=== PATIENT | male | born 1935 | race Caucasian/White ===

== ENCOUNTER 2017-11-22 00:03 | Inpatient (IN) | payer MEDICARE ==
[2017-11-22] MEDS ORDERED: Adenosine 6 MG/2 ML VIAL ONE (00:10)
[2017-11-22] MEDS ORDERED: Midazolam HCl 2 mg/2 ml Vial ONE (00:13)
[2017-11-22] MEDS ORDERED: Amiodarone HCl 150 MG, Admixture Fee 1 EACH in Dextrose 5% in Water 100 ML IVPB SCH ×2 (00:30→18:00)
[2017-11-22] MEDS ORDERED: Amiodarone HCl 450 MG, Admixture Fee 1 EACH in Dextrose 5% in Water 250 ML IVPB SCH ×2 (00:30→06:45)
[2017-11-22 00:52] LABS: #Basophils 0.1 thou/uL (0.0-0.2); #Eosinphils 0.2 thou/uL (0.0-0.7); #Lymphocytes 3.9 thou/uL (1.20-3.40); #Monocytes 0.9 thou/uL (0.11-0.59); #Neutrophils 3.5 thou/uL (1.40-6.50); %Basophils 1.4 % (0.0-1.0); %Eosinophils 2.4 % (0.0-10.0); %Lymphocytes 45.7 % (21.0-51.0); %Monocytes 10.3 % (0.0-10.0); %Neutrophils 40.3 % (42.0-75.0); Hemoglobin 16.4 g/dL (14.0-18.0); Mean Corpuscular HGB CONC 32.5 g/dL (32.0-36.0); Mean Corpuscular Hemoglobin 31.1 pg (27.0-31.0); Mean Corpuscular Volume 95.6 fL (78.0-98.0); Mean Platelet Volume 6.7 fL (7.4-10.4); Platelet Count 205 thou/uL (130-400); RBC Distribution Width 12.8 % (11.5-14.5); Red Blood Cell (RBC) Count 5.26 mill/uL (4.70-6.10); White Blood Cell (WBC) Count 8.6 thou/uL (4.8-10.8)
[2017-11-22 01:10] LABS: ALT (SGPT) 19 U/L (8-55); AST (SGOT) 21 U/L (5-34); Albumin 4.9 g/dL (3.4-4.8); Alkaline Phosphatase 47 U/L (40-150); Anion Gap 16 mmol/L (10-20); BUN (Urea Nitrogen) 11 mg/dL (8.4-25.7); Bilirubin, Total 0.6 mg/dL (0.2-1.2); CK (CPK) 90 U/L (30-200); Calc. Creatinine Clearance 0 mL/min (70-130); Calcium 9.6 mg/dL (7.8-10.44); Carbon Dioxide 23 mmol/L (23-31); Chloride 101 mmol/L (98-107); Estimated GFR-MDRD 72; Globulin 2.9 g/dL (2.4-3.5); Glucose 132 mg/dL (83-110); Magnesium 2.7 mg/dL (1.6-2.6); Potassium 3.9 mmol/L (3.5-5.1); Protein, Total 7.8 g/dL (5.8-8.1); Sodium 136 mmol/L (136-145)
[2017-11-22 01:12] LABS: CKMB 2.1 ng/mL (0-6.6); Troponin I Less than 0.010 ng/mL (< 0.028)
--- NOTE | 2017-11-22 04:08 | HP ---
The patient is currently between doctors, but he plans to see Dr. Haynes. He had been seeing Dr. Glen odonnell. APARTMENT MAINTENANCE TECHNICIAN: Fly Mendez M.D. CHIEF COMPLAINT: "I felt strange and having palpitations." HISTORY OF PRESENT ILLNESS: Mr. Buck is a pleasant 82-year-old gentleman that has a history of hyp ertension, atrial fibrillation. He has had 2 ablations in the past for supraventricular tachycardia or atrial tachycardia. He says that he was feeling kind of strange on yesterday. He has an raisa on h is watch that can take his heart rate and said it was normal, but he did feel hard. Then, today arou nd noon, he still felt strange again and later on that night he felt okay. However, when he went to bed, he felt like his heart was pounding. He took his blood pressure and noticed that his blood pres sure was "going crazy" and his heart rate was ranging anywhere from 50s to the 160s. He lives in [place] and says he drove himself to the hospital and in the hospital, he was found to have what wa s initially thought of his narrow complex tachycardia. He was given adenosine to try to slow it down . It slowed down for a little bit, but then became fast again. He was given amiodarone without much improvement in his symptoms. At that time, the ER physician felt that his heart rate or the heart r hythm appeared to be ventricular tachycardia and for this reason, he went ahead and cardioverted him and now he is in sinus rhythm and is currently on the amiodarone drip. The patient says that during this time, he denied having any chest pain or shortness of breath, but he did feel little bit dizzy a nd lightheaded, no nausea, no vomiting, no diaphoresis. REVIEW OF SYSTEMS: All systems were reviewed and are negative except for that mentioned in the histo ry of present illness. PAST MEDICAL HISTORY: Significant for atrial arrhythmia. He has had 2 ablations in the past, hypert ension, atrial fibrillation, gastroesophageal reflux disease, and BPH. PAST SURGICAL HISTORY: He has had ablations x2, tonsillectomy, and ventral hernia repair. ALLERGIES: No known drug allergies. SOCIAL HISTORY: He is , has two children, a son and a daughter. He occasionally drinks socia lly. He denies any tobacco use. His son, Saleem Buck would be his surrogate decision maker and he w ould like to be a [employer]. FAMILY HISTORY: Significant for heart disease in his father. Mother lived in the 100s, to be 100 ye ars old. MEDICATIONS: Include metoprolol 50 mg 2 tablets a day, aspirin 81 mg daily, simvastatin 20 mg at bed time, pantoprazole 20 mg q.p.m., finasteride 3 mg daily, and Flomax 0.4 at bedtime. PHYSICAL EXAMINATION: GENERAL: He is alert and oriented. He appears to be in no acute distress. VITAL SIGNS: His blood pressure is around 102/70, heart rate is in the 70s, respiratory rate of 11. He is afebrile. HEENT: Pupils are equal, round, and reactive. Extraocular muscles are intact. His sclerae are anic teric. Throat no erythema, no exudates. NECK: No adenopathy, no bruits. LUNGS: Clear to auscultation. There is no wheezing, no rales. CARDIOVASCULAR: He has a normal S1, S2. I did not appreciate an S3 or S4. No murmurs, clicks or ru bs. ABDOMEN: Soft, it is nontender, nondistended. Positive for bowel sounds. No rebound, no guarding. EXTREMITIES: There is no clubbing, cyanosis, no edema. NEUROLOGIC: The exam is nonfocal. LABORATORY RESULTS: Sodium 136, potassium 3.9, chloride is 101, CO2 is 23, BUN of 11, creatinine 1.0 , glucose is 132. White blood cell count 8.6, hemoglobin 16.4, hematocrit is 50.3, platelet count is 205. Chest x-ray, heart size appears to be slightly enlarged, costophrenic angles are sharp. There is no evidence of any increased pulmonary vascular markings. ASSESSMENT AND PLAN: This is a pleasant 82-year-old gentleman who presents to the emergency room wit h an arrhythmia thought to be possibly both a narrow complex and then a wide complex tachycardia. He will be admitted to the [facility]. We will continue the amiodarone drip. Keep a close eye on his electr olytes and replace or correct as needed. Consult Cardiology in the a.m. I suspect he may also need electrophysiology consult as well. We will continue his metoprolol and await further recommendations from Cardiology.
[2017-11-22] MEDS ORDERED: Ondansetron ODT 4 MG TAB SL PRN (06:02)
[2017-11-22] MEDS ORDERED: Ondansetron HCl/PF 4 MG/2 ML Vial IVP PRN (06:02)
[2017-11-22] MEDS ORDERED: Acetaminophen 325 MG TAB PO PRN ×2 (06:02→06:27)
[2017-11-22 06:15] LABS: Troponin I Less than 0.010 ng/mL (< 0.028)
[2017-11-22 06:26] VITALS: BMI 24.4
[2017-11-22] MEDS ORDERED: Mag-Al 1200 mg/1200 mg/30 ML UDCUP PO PRN (06:27)
[2017-11-22] MEDS ORDERED: Amiodarone In Dextrose 200 ML IVPB SCH (06:27)
[2017-11-22] MEDS ORDERED: Prevnar 13-Val Conj/PF 0.5 ML SYRINGE IM ONE (06:45)
--- NOTE | 2017-11-22 08:22 | RAD ---
CHEST ONE VIEW: HISTORY: Palpitations. Irregular heartbeat. COMPARISON: None. FINDINGS: The cardiac silhouette is magnified and upper limits of normal in size. The pulmonary vasculature is also at the upper limits of normal. The mediastinum is midline. No lobar consolidation or evidence of pneumothorax. A defibrillator patch overlies the right upper chest. laboratory monitor leads overl y the chest. IMPRESSION: Borderline cardiomegaly and pulmonary vascular congestion. No florid edema is evident. POS: PIPPA
--- NOTE | 2017-11-22 08:23 | PDOC.PULCN ---
Pulmonology Consult: HPI - Date of Consult Date: 11/22/17 Time: 08:21 - Consult Details Reason for Consult: [facility] for [facility] Requesting Physician: Patrick Lizarraga MD - History of Present Illness HPI: MENDY MCINTOSH is a 82 year-old M Pulmonology Consult: Meds - Medications Medications: Current Medications Acetaminophen (Tylenol) 650 mg PO Q4H PRN PRN Reason: Headache/Fever or Pain Stop: 11/22/17 13:04 Acetaminophen (Tylenol) 650 mg PO Q4H PRN PRN Reason: Headache/Fever or Pain Al Hydroxide/Mg Hydroxide (Maalox) 30 ml PO Q6H PRN PRN Reason: Heartburn or Indigestion Aspirin (Aspirin Chewable) 81 mg PO Q3DAYS [facility] Enoxaparin Sodium (Lovenox) 40 mg SC 0900 [facility] Amiodarone HCl 450 mg/Miscellaneous Medication 1 each/ Dextrose/Water 259 mls @ 0 mls/hr IVPB INF [facility]; Protocol Metoprolol Succinate (Toprol Xl) 50 mg PO DAILY [facility] Ondansetron HCl (Zofran) 4 mg IVP Q6H PRN PRN Reason: Nausea/Vomiting Stop: 11/22/17 13:04 Ondansetron HCl (Zofran Odt) 4 mg SL Q6H PRN PRN Reason: Nausea/Vomiting Stop: 11/22/17 13:04 Simvastatin (Zocor) 20 mg PO HS [facility] Sodium Chloride (Flush - Normal Saline) 10 ml IVF Q12HR [facility] Sodium Chloride (Flush - Normal Saline) 10 ml IVF PRN PRN PRN Reason: Saline Flush Tamsulosin HCl (Flomax) 0.4 mg PO DAILY [facility] - Allergies Allergies/Adverse Reactions: Allergies Allergy/AdvReac Type Severity Reaction Status Date / Time No Known Drug Allergies Allergy Verified 02/25/16 07:57 Pulmonology Consult: Results - Labs Result Diagrams: 11/22/17 00:44 11/22/17 00:07 Pulmonology Consult: A/P - Time Time: 50% of the time was spent in coordination of care (as documented) at patient's floor/unit and/or counseling patient.
[2017-11-22] MEDS ORDERED: Enoxaparin Sodium 40 MG/0.4 ML SYRINGE SC SCH (09:00)
[2017-11-22 09:03] LABS: Troponin I Less than 0.010 ng/mL (< 0.028)
[2017-11-22] MEDS: Tamsulosin HCl 0.4 MG CAP PO SCH (09:21)
[2017-11-22] MEDS ORDERED: Apixaban 5 MG TAB PO SCH ×2 (11:00→21:00)
--- NOTE | 2017-11-22 17:25 | PDOC.EVN ---
Event Note - Event Note Event Note: Chart reviewed, patient seen. No complaints, will follow.
--- NOTE | 2017-11-22 17:41 | CON ---
DATE OF CONSULTATION: 11/22/2017 REASON FOR CONSULTATION: Wide complex tachycardia. HISTORY OF PRESENT ILLNESS: Mr. Buck is a very pleasant 82-year-old gentleman whom I have seen and evaluated in the past. He has a history of atrial fibrillation, status post ablation. He recently presented with palpitations and fluttering. He presented to the emergency room where he was found to be in wide complex tachycardia. He could not be rate controlled on IV Cardizem, adenosine or amioda isaiah. He was subsequently shocked while in the emergency room. He is now in sinus rhythm. After further review, it appears Mr. Buck was back in atrial fibrillation. His wide complex tachyc ardia is secondary to baseline right bundle branch block. No changes in the morphology were present. He is currently asymptomatic. PAST MEDICAL HISTORY: As above including hypertension, acid reflux, BPH. PAST SURGICAL HISTORY: Atrial fibrillation status post ablation, tonsillectomy. ALLERGIES: None. SOCIAL HISTORY: No current tobacco or alcohol use. REVIEW OF SYSTEMS: A 10-point review of systems is reviewed and as above, otherwise negative. HOME MEDICATIONS: Include metoprolol, aspirin, Zocor, pantoprazole, finasteride and Flomax. PHYSICAL EXAMINATION: GENERAL: Patient is a pleasant male who is in no acute distress. The patient appears his stated age . VITAL SIGNS: Blood pressure 132/67, pulse 65, temperature 97.5. NEUROLOGIC: The patient is alert and oriented times 3 with no focal neurologic deficits. HEENT: Sclerae without icterus. Mouth has moist mucous membranes with normal pallor. NECK: No JVD. Carotid upstroke brisk. No bruits bilaterally. LUNGS: Clear to auscultation with unlabored respirations. BACK: No scoliosis or kyphosis. CARDIAC: Regular rate and rhythm with normal S1 and S2. No S3 or S4 noted. No significant rubs, mu rmurs, thrills, or gallops noted throughout the precordium. PMI is not displaced. There is no dennys ternal heave. ABDOMEN: Soft, nontender, nondistended. No peritoneal signs present. No hepatosplenomegaly. No ab normal striae. EXTREMITIES: 2+ femoral and 2+ dorsalis pedis pulses. No cyanosis, clubbing, or edema. SKIN: No gross abnormalities. PERTINENT LABS: Hemoglobin 16.4, creatinine 1.0. Troponin negative. IMPRESSION: Recurrent paroxysmal atrial fibrillation. RECOMMENDATIONS: 1. Add Multaq 400 mg 1 p.o. b.i.d. 2. Add Eliquis 5 mg 1 p.o. b.i.d. 3. May need repeat ablation if he continues to have breakthrough atrial fibrillation. Would monitor overnight. If stable, would be okay from my standpoint to discharge home with close outpatient foll owup.
[2017-11-22] MEDS: Amiodarone HCl 450 MG, Admixture Fee 1 EACH in Dextrose 5% in Water 250 ML IVPB SCH (18:18)
[2017-11-22] MEDS: Dronedarone HCl 400 MG TAB PO SCH (18:20)
[2017-11-22] MEDS ORDERED: Digoxin 0.5 MG/2 ML AMP SLOW IVP SCH (20:15)
[2017-11-22] MEDS ORDERED: Sodium Chloride 0.9% 500 ML IVPB SCH (20:30)
[2017-11-22] MEDS: Simvastatin 20 MG TAB PO SCH (21:23)
[2017-11-22] MEDS: Digoxin 0.5 MG/2 ML AMP SLOW IVP SCH (21:24)
[2017-11-23] MEDS: Digoxin 0.5 MG/2 ML AMP SLOW IVP SCH (00:52)
[2017-11-23 05:44] LABS: Anion Gap 11 mmol/L (10-20); BUN (Urea Nitrogen) 9 mg/dL (8.4-25.7); Calc. Creatinine Clearance 73 mL/min (70-130); Calcium 8.9 mg/dL (7.8-10.44); Carbon Dioxide 24 mmol/L (23-31); Chloride 106 mmol/L (98-107); Estimated GFR-MDRD 81; Glucose 103 mg/dL (83-110); Potassium 3.9 mmol/L (3.5-5.1); Sodium 137 mmol/L (136-145)
[2017-11-23] MEDS: Amiodarone HCl 450 MG, Admixture Fee 1 EACH in Dextrose 5% in Water 250 ML IVPB SCH (06:20)
--- NOTE | 2017-11-23 08:24 | PRG ---
DATE OF SERVICE: 11/23/2017 HISTORY OF PRESENT ILLNESS: Mr. Buck last evening appeared to go into SVT type rhythm. He is now in sinus rhythm. He was placed on IV amiodarone. He states he has shortness of breath and felt ligh theaded. He is now stable. PHYSICAL EXAMINATION: VITAL SIGNS: Blood pressure 140/57, pulse 60, temperature 97.9. LUNGS: Clear to auscultation. CARDIAC: Regular rate and rhythm. ABDOMEN: Soft, nontender, nondistended. EXTREMITIES: No edema. IMPRESSION: 1. Supraventricular tachycardia. 2. History of paroxysmal atrial fibrillation. RECOMMENDATIONS: 1. Continue Multaq. 2. Hold Eliquis in anticipation of potential procedure tomorrow. 3. We will add Lovenox at 1 mg/kilo subcu and consult with EP. 4. Continue IV amiodarone.
[2017-11-23] MEDS: Dronedarone HCl 400 MG TAB PO SCH ×2 (09:27→17:12)
[2017-11-23] MEDS: Tamsulosin HCl 0.4 MG CAP PO SCH (09:27)
[2017-11-23] MEDS: Enoxaparin Sodium 80 MG/0.8 ML SYRINGE SC SCH ×2 (09:28→21:29)
--- NOTE | 2017-11-23 14:52 | PDOC.PN ---
- Subjective Encounter Start Date: 11/23/17 Encounter Start Time: 14:50 Pt seen for followup re: SVT. Denies chest pain, shortness of breath, fevers or chills. - Objective Resuscitation Status: Resuscitation Status FULL:Full Resuscitation MAR Reviewed: Yes Vital Signs & Weight: Vital Signs (12 hours) Temp Pulse Resp BP BP Pulse Ox 11/23/17 11:40 97.6 F 61 18 158/75 H 11/23/17 11:00 95 11/23/17 10:40 97.8 F 66 18 140/76 95 11/23/17 08:00 97.9 F 62 14 11/23/17 07:49 97.9 F 62 14 141/57 H 99 11/23/17 04:00 97.8 F 61 16 116/64 98 Weight Weight 175 lb I&O: 11/22/17 11/23/17 11/24/17 06:59 06:59 06:59 Intake Total 300 1520 47.4 Output Total 360 2050 Balance -60 -530 47.4 Result Diagrams: 11/22/17 00:44 11/23/17 04:37 EKG Reviewed by me: Yes (Tele: NSR, SVT) Phys Exam - Physical Examination Constitutional: NAD HEENT: moist MMs, sclera anicteric, oral pharynx no lesions, 2+ tonsils Neck: no nodes, no JVD, supple, full ROM Respiratory: no wheezing, no rales, no rhonchi, clear to auscultation bilateral Cardiovascular: RRR, no rub S1, s2 Gastrointestinal: soft, non-tender, no distention, positive bowel sounds Neurological: moves all 4 limbs Psychiatric: normal affect, A&O x 3 Dx/Plan (1) SVT (supraventricular tachycardia) Code(s): I47.1 - SUPRAVENTRICULAR TACHYCARDIA Status: Acute Comment: SVT and VT. Continue amiodarone drip. Monitor on telemetry. (2) Dyslipidemia Code(s): E78.5 - HYPERLIPIDEMIA, UNSPECIFIED Status: Chronic Comment: continue statin (3) HTN (hypertension) Code(s): I10 - ESSENTIAL (PRIMARY) HYPERTENSION Status: Chronic Comment: Monitor vital signs, titrate antihypertensives as needed (4) GERD (gastroesophageal reflux disease) Code(s): K21.9 - GASTRO-ESOPHAGEAL REFLUX DISEASE WITHOUT ESOPHAGITIS Status: Chronic Comment: stable (5) BPH (benign prostatic hyperplasia) Code(s): N40.0 - BENIGN PROSTATIC HYPERPLASIA WITHOUT LOWER URINRY TRACT SYMP Status: Chronic Comment: stable, on Flomax and finasteride - Plan * . Review of Systems - Review of Systems Constitutional: negative: fever, chills, sweats, weakness, malaise Respiratory: negative: Cough, Shortness of Breath, SOB with Excertion, Pleuritic Pain, Wheezing Cardiovascular: negative: chest pain, palpitations, orthopnea, paroxysmal nocturnal dyspnea, edema, light headedness Gastrointestinal: negative: Nausea, Vomiting, Abdominal Pain, Diarrhea, Constipation, Melena, Hematochezia Genitourinary: negative: Dysuria, Frequency, Incontinence, Hematuria, Retention Skin: negative: Rash, Lesions, Allan, Bruising - Medications/Allergies Allergies/Adverse Reactions: Allergies Allergy/AdvReac Type Severity Reaction Status Date / Time No Known Drug Allergies Allergy Verified 02/25/16 07:57 Medications: Current Medications Acetaminophen (Tylenol) 650 mg PO Q4H PRN PRN Reason: Headache/Fever or Pain Al Hydroxide/Mg Hydroxide (Maalox) 30 ml PO Q6H PRN PRN Reason: Heartburn or Indigestion Last Admin: 11/22/17 19:03 Dose: 30 ml Aspirin (Aspirin Chewable) 81 mg PO Q3DAYS [facility] Last Admin: 11/22/17 09:21 Dose: 81 mg Dronedarone (Multaq) 400 mg PO BID-[facility] Last Admin: 11/23/17 09:27 Dose: 400 mg Enoxaparin Sodium (Lovenox) 80 mg SC 0900,2100 [facility] Last Admin: 11/23/17 09:28 Dose: 80 mg Amiodarone HCl 450 mg/Miscellaneous Medication 1 each/ Dextrose/Water 259 mls @ 0 mls/hr IVPB INF [facility]; Protocol Last Admin: 11/23/17 06:20 Dose: 259 mls Metoprolol Succinate (Toprol Xl) 50 mg PO DAILY [facility] Last Admin: 11/23/17 09:28 Dose: 50 mg Simvastatin (Zocor) 20 mg PO HS [facility] Last Admin: 11/22/17 21:23 Dose: 20 mg Sodium Chloride (Flush - Normal Saline) 10 ml IVF Q12HR [facility] Last Admin: 11/23/17 09:35 Dose: Not Given Sodium Chloride (Flush - Normal Saline) 10 ml IVF PRN PRN PRN Reason: Saline Flush Tamsulosin HCl (Flomax) 0.4 mg PO DAILY [facility] Last Admin: 11/23/17 09:27 Dose: 0.4 mg
[2017-11-23] MEDS: Simvastatin 20 MG TAB PO SCH (21:29)
[2017-11-24] MEDS: Dronedarone HCl 400 MG TAB PO SCH (09:54)
[2017-11-24] MEDS: Tamsulosin HCl 0.4 MG CAP PO SCH (09:54)
[2017-11-24] MEDS: Enoxaparin Sodium 80 MG/0.8 ML SYRINGE SC SCH (09:54)
--- NOTE | 2017-11-24 11:48 | EKG ---
Test Reason : STAT Blood Pressure : / mmHG Vent. Rate : 182 BPM Atrial Rate : 182 BPM P-R Int : 000 ms QRS Dur : 134 ms QT Int : 254 ms P-R-T Axes : 000 084 -50 degrees QTc Int : 441 ms Poor data quality, interpretation may be adversely affected Wide QRS tachycardia with occasional Premature ventricular complexes vs. aberrancy , Favor Acute SVT (Supraventricular Tachycardia) Right bundle branch block Abnormal ECG When compared with ECG of 22-NOV-2017 00:34, (Unconfirmed) Wide QRS tachycardia has replaced Sinus rhythm Vent. rate has increased BY 98 BPM Confirmed by ZULLY HERNANDEZ ([id number]) on 11/24/2017 11:48:24 AM Referred By: RASHMI Confirmed By:ZULLY HERNANDEZ
--- NOTE | 2017-11-24 14:05 | DIS ---
DATE OF ADMISSION: 11/22/2017 DATE OF DISCHARGE: 11/24/2017 PRIMARY CARE PHYSICIAN: Taye Benitez in [place]. DISCHARGE DIAGNOSES: 1. Supraventricular tachycardia. 2. History of atrial fibrillation. CONDITION OF PATIENT ON THE DAY OF DISCHARGE: Stable. I assessed Mr. Buck on the day of discharge . He denies any chest pain or shortness of breath. Vital signs are stable. S1 and S2 are heard, re gular. Lungs are clear to auscultation bilaterally. DISCHARGE MEDICATIONS: Aspirin 81 mg daily, finasteride 5 mg daily, Toprol-XL 100 mg daily, Zocor 20 mg at bedtime, Flomax 0.4 mg daily, apixaban 5 mg 2 times a day, Multaq 400 mg 2 times a day. CONSULTATIONS DURING THIS HOSPITALIZATION: Cardiology, Dr. Mendez and Electrophysiology, Dr. Nesha pulido. HOSPITAL COURSE: Mr. Buck is a pleasant 82-year-old gentleman who was admitted to [facility] on 11/22/2017 for narrow complex tachycardia and wide complex tachycardia. Please refer to Dr. Lizarraga's history and physical note dated 11/22/2017 for further details. He was seen by Cardiology Service. The impression was that he had recurrent paroxysmal atrial fibril lation. He has been started on Multaq. Eliquis was also started but then put on hold in case he nee ds repeat ablation. He was seen by Electrophysiology Service on the day of discharge. It was advised that the patient co ntinue on Multaq, Eliquis and metoprolol and follow up with Electrophysiology Service as outpatient. Many thanks for allowing me to participate in your patient's care. Please feel free to contact me wi th any questions or concerns. Please note that patient is establishing care with Dr. Haynes. He was previously Dr. Mars's barbara ent. DISCHARGE DESTINATION: Home. TOTAL AMOUNT OF TIME SPENT COORDINATING THIS DISCHARGE: 33 minutes.
[2017-11-24 15:02] VITALS: BP 131/78; TEMP 97.6
--- NOTE | 2017-11-24 19:05 | CON ---
DATE OF CONSULTATION: 11/24/2017 ELECTROPHYSIOLOGY CONSULTATION REQUESTING PHYSICIAN: Dr. Fly Mendez. REASON FOR CONSULTATION: Atrial fibrillation. HISTORY OF PRESENT ILLNESS: Mr. Buck is a very pleasant 82-year-old gentleman with a history of at rial fibrillation with 2 prior ablations, most recently in 02/[address] Martinez. At this time, he underwent successful ablation and re-isolation of all four pulmonary veins from his prior ablation. At that time, he received a total of 15.6 minutes delivered. Since that time, he is largely w ell maintained off of antiarrhythmic therapy, but has had a couple episodes with heart racing and an associated odd sensation leaving him somewhat lightheaded and foggy and reportedly was terminated wit h adenosine. SVT, but likely for recurrent atrial fibrillation or atrial flutter. With this hospitalization, we find that Mr. Buck has had a similar episode. He is felt kind of odd and funny and felt that his heart rate was pounding. When he presented to the emergency room, he wa s initially in a narrow complex tachycardia. He was given some amiodarone; however, he then develope d a wide complex tachycardia. There was a brief concern for ventricular tachycardia and he promptly underwent a cardioversion. He is in maintaining sinus rhythm on amiodarone drip. Currently, Mr. Shauna harp is feeling well. He denies any heart racing, palpitations, chest pain, pressure, syncope, near s yncope, stroke symptoms. REVIEW OF SYSTEMS: Twelve point review of systems is conducted and is negative except that listed ab ove in HPI. PAST SURGICAL HISTORY: 1. Atrial fibrillation, status post 2 prior ablations. 2. Recurrent episodes of SVT, likely recurrent atrial arrhythmia requiring hospitalizations in the p ast in responsive to adenosine now with a direct cardioversion. 3. Hypertension. 4. Gastroesophageal reflux disease. 5. Benign prostatic hypertrophy. HOME MEDICATIONS: Metoprolol 100 mg p.o. daily, Proscar 5 mg daily, aspirin 81 mg daily, tamsulosin 0.4 mg daily, simvastatin 20 mg at bedtime. SOCIAL HISTORY: with 2 children. Occasional alcoholic beverage. Negative for tobacco. Neg ative for drug use. PHYSICAL EXAMINATION: VITAL SIGNS: Most recent vital signs; 98.2, blood pressure 136/89, respirations are 16, oxygen is 96 % on room air and heart rate is 77. GENERAL: The patient is alert and oriented. HEAD: Normocephalic, atraumatic. RESPIRATORY: Speech is clear. Affect is appropriate. NECK: Supple, without jugular venous distention. LUNGS: Respirations are clear to auscultation bilaterally. Respirations are even and unlabored. CARDIOVASCULAR: Heart rate is regularly regular with a crisp S1, S2. PMI is nondisplaced. ABDOMEN: Soft and nontender without palpable masses. EXTREMITIES: Warm and dry to touch without clubbing, cyanosis or edema. NEUROLOGIC: Exam is grossly intact and nonfocal. Gait was not assessed. LABORATORY DATA: Laboratory was reviewed and unremarkable. Creatinine 0.9, potassium 3.9. Telemetry and EKG; initially patient was in atrial fibrillation versus an atrial tachycardia, no vent ricular tachycardia has been seen. Currently, maintaining sinus rhythm since cardioversion in the em ergency room. IMPRESSION: 1. Recurrent atrial arrhythmia, status post 2 prior ablations, most recently in 02/2016, symptomatic shortness of breath. 2. Palpitations and symptomatic of his arrhythmia. No shortness of breath. 3. Oral anticoagulation on Eliquis. 4. CHADS-VASc score of 3 on the basis of advanced age and history of hypertension. RECOMMENDATIONS: 1. Continue Eliquis for stroke prophylaxis in the setting of atrial arrhythmias. 2. Agree with Multaq for arrhythmia suppression. 3. Double home metoprolol dose, more improved rate control. 5. He will be scheduled for an outpatient redo ablation for recurrent atrial arrhythmias on a x day. Thank you for allowing me to participate in the care of this patient.
== END 2017-11-24 15:08 | disposition home or self-care (01) | DRG 310 ==
LOC: ERS 00:03 → ERHOLD 03:03 → IMCU/EMU 05:43 → 2NO 11-23 10:51
PROVIDERS: ADMIT Internal Medicine; ATTEND Internal Medicine
DX: I48.0 Paroxysmal atrial fibrillation (principal); I10 Essential (primary) hypertension; I47.1 Supraventricular tachycardia; K21.9 Gastro-esophageal reflux disease without esophagitis; N40.0 Benign prostatic hyperplasia without lower urinary tract symptoms
CPT/HCPCS: 36415; 71045; 80048; 80053; 82553; 83735; 84484; 85025; 92960; 93005; 93010; 94760; 96365; 96366; 96375; 96376; A4216; J0153; J0282; J1160; J1650; J2250; J7050; J7070

== ENCOUNTER 2018-01-19 10:50 | Outpatient (CLI) | payer MEDICARE ==
[2018-01-19 12:29] LABS: INR-International Normal Ratio 1.1; PTT 24.5 SEC (22.9-36.1); Prothrombin Time 14.2 SEC (12.0-14.7)
[2018-01-19 12:30] LABS: Hemoglobin 15.1 g/dL (14.0-18.0); Mean Corpuscular Hemoglobin 29.6 pg (27.0-31.0); Mean Corpuscular Volume 92.8 fL (78.0-98.0); Mean Platelet Volume 6.6 fL (7.4-10.4); Platelet Count 232 thou/uL (130-400); RBC Distribution Width 12.7 % (11.5-14.5); White Blood Cell (WBC) Count 6.3 thou/uL (4.8-10.8)
[2018-01-19 12:40] LABS: Anion Gap 15 mmol/L (10-20); BUN (Urea Nitrogen) 13 mg/dL (8.4-25.7); Calc. Creatinine Clearance 0 mL/min (70-130); Calcium 9.2 mg/dL (7.8-10.44); Carbon Dioxide 16 mmol/L (23-31); Chloride 107 mmol/L (98-107); Estimated GFR-MDRD Greater than 90; Glucose 88 mg/dL (83-110); Potassium 3.9 mmol/L (3.5-5.1); Sodium 134 mmol/L (136-145)
== END 2018-01-19 10:51 | disposition home or self-care (01) ==
LOC: LABBT 10:50
PROVIDERS: ATTEND Specialist
DX: Z01.818 Encounter for other preprocedural examination (principal); I48.1 Persistent atrial fibrillation
CPT/HCPCS: 80048; 85027; 85610; 85730; 93005; 93010

== ENCOUNTER 2018-01-27 05:44 | Observation (INO) | payer MEDICARE ==
[2018-01-27] MEDS ORDERED: Heparin 10,000 UNITS/1 ML VIAL ONE (06:40)
[2018-01-27] MEDS ORDERED: Lidocaine 1% (PF) 30 ML VIAL ONE (06:53)
[2018-01-27] MEDS ORDERED: Isoproterenol 0.2 MG/1 ML AMP ONE (09:59)
[2018-01-27] MEDS ORDERED: Promethazine HCl 25 MG/ML VIAL SLOW IVP PRN (10:32)
[2018-01-27] MEDS ORDERED: Promethazine HCl 25 MG/ML VIAL IM PRN (10:32)
[2018-01-27] MEDS ORDERED: Ondansetron HCl/PF 4 MG/2 ML Vial IVP PRN (10:32)
[2018-01-27] MEDS ORDERED: Protamine Sulfate 50 MG/5 ML VIAL ONE (10:35)
[2018-01-27] MEDS ORDERED: Heparin 30,000 units/30 ml VIAL ONE (11:54)
[2018-01-27] MEDS ORDERED: Ondansetron PF 4 MG/2 ML Vial ONE (11:54)
[2018-01-27] MEDS ORDERED: Glycopyrrolate 0.2 MG/ML 5 ML SYRINGE ONE (11:54)
[2018-01-27] MEDS ORDERED: PROPOFOL 200 MG/20 ML VIAL ONE (11:54)
[2018-01-27] MEDS ORDERED: PHENYLEPHRINE-NS 100 MCG/ML 10 ML SYRINGE ONE (11:54)
[2018-01-27] MEDS ORDERED: Lidocaine 1% PF 5 ML VIAL ONE (11:54)
[2018-01-27] MEDS: Sucralfate 1 GM TAB PO SCH ×3 (13:00→21:41)
--- NOTE | 2018-01-27 13:01 | OP ---
PROCEDURE: Radiofrequency ablation for atrial fibrillation and atrial tachycardia. PREOPERATIVE DIAGNOSES: Atrial fibrillation and atrial tachycardia. PROCEDURE DETAILS: The patient came to the EP lab in the postabsorptive state. Informed consent was obtained. A timeout was called. The patient was sedated by member of the Anesthesia staff. Once p atient adequately sedated, the right and left femoral regions and the right internal jugular region w ere prepped and draped in usual sterile fashion. Using a modified Seldinger technique and with ultra sound guided access, access was obtained x2 in the right femoral vein and x1 in the left femoral vein . Right internal jugular vein was also accessed. A 20 pole duodeca catheter was advanced in the rig ht internal jugular vein placed with the distal 10 poles in the coronary sinus for left atrial pacing and recording. Intracardiac echo was advanced from the left femoral vein for procedural monitoring. Heparin bolus was given and transseptal puncture x2 was performed under ultrasound guidance, a 10 p ole 20 mm circular mapping catheter was placed in the left atrium as was a Bai[employer] Carto mo ter. A 3D geometry was obtained with anatomical mapping system as was a map of the tachycardia which suggested that it was septal. It was noted that the 2 left-sided veins as well as the right inferio r pulmonary vein appeared to have recovered signal. The posterior wall also appeared to have recover ed. Radiofrequency application was delivered for a total of 20 minutes with the result of re-isolati on of the right inferior pulmonary vein, the 2 left-sided veins. The tachycardia was mapped to an ea rly sites on the right septum which was earlier than the left and terminated in that location. The t achycardia was at approximately 340 milliseconds. Radiofrequency ablation both on the right and left septum across from it were performed as well. Isoproterenol bolus was given and no further tachycar issa could be induced. Pacing in the left ventricle was performed as was pacing in the coronary sinus . The patient tolerated the procedure well and was discharged from the EP lab after hemostasis was o btained by placement of VASCADE devices. PROCEDURE PERFORMED: Atrial fibrillation ablation. Additional ablation for atrial fibrillation. Ab lation and mapping of supraventricular tachycardia. Three-dimensional electroanatomical mapping, mark g using isoproterenol intracardiac echo, transseptal puncture, pacing of the left ventricle and recor ding, pacing and recording of the left atrium and coronary sinus. CONCLUSIONS: 1. Successful re-isolation of pulmonary veins and posterior wall. 2. Successful ablation of atrial tachycardia emanating from the right and left septal areas. 3. Normal AV conduction with HV interval of approximately 40-45 milliseconds. RECOMMENDATIONS: The patient will be at bed rest. He will be given Carafate and Protonix and will b e discharged tomorrow if he remains stable.
[2018-01-27] MEDS ORDERED: Atorvastatin Calcium 10 MG TAB PO SCH (21:00)
[2018-01-27] MEDS: Apixaban 5 MG TAB PO SCH (21:41)
[2018-01-28] MEDS ORDERED: Acetaminophen 325 MG TAB PO PRN (00:25)
[2018-01-28] MEDS ORDERED: traMADol HCl 50 MG TAB PO PRN (00:25)
[2018-01-28] MEDS ORDERED: Ondansetron PF 4 MG/2 ML Vial IVP PRN (00:25)
[2018-01-28] MEDS ORDERED: Mag-Al 1200 mg/1200 mg/30 ML UDCUP PO PRN (00:25)
[2018-01-28] MEDS ORDERED: Bisacodyl 5 MG TAB PO PRN (00:25)
[2018-01-28] MEDS ORDERED: Nitroglycerin 0.4 MG TAB (25 Tab Bottle) SL PRN (00:25)
[2018-01-28] MEDS ORDERED: Bisacodyl 10 MG SUPP PR PRN (00:25)
[2018-01-28] MEDS ORDERED: Silver Sulfadiazine 1% Cream 50 GM JAR TOP PRN (00:25)
[2018-01-28] MEDS ORDERED: diphenhydrAMINE 25 MG CAP PO PRN (00:25)
[2018-01-28 06:25] VITALS: BMI 24.5
[2018-01-28] MEDS ORDERED: Finasteride 5 MG TAB PO SCH (09:00)
[2018-01-28] MEDS ORDERED: Tamsulosin HCl 0.4 MG CAP PO SCH (09:00)
[2018-01-28] MEDS: Apixaban 5 MG TAB PO SCH (09:32)
[2018-01-28] MEDS: Sucralfate 1 GM TAB PO SCH ×2 (09:32→13:45)
[2018-01-28 11:51] VITALS: BP 113/67; TEMP 97.8
--- NOTE | 2018-01-29 02:43 | DIS ---
DATE OF ADMISSION: 01/27/2018 DATE OF DISCHARGE: 01/28/2018 REFERRING PHYSICIAN: . ADMITTING DIAGNOSES: Persistent atrial fibrillation with 2 prior ablations was seen in 2016: A. Recurrent tachyarrhythmia sensations, requiring transient amiodarone and has antiarrhythmic medic ation use. B. Status post redo left atrial ablation procedure, re-isolation of pulmonary veins and the posterio r wall, ablation of atrial tachycardia originating from the right and left septal areas. HOSPITAL COURSE: Mr. Buck underwent ablation procedure as noted above. He had a total of 20 minut es of ablation performed by Dr. Rodriguez as noted above. He remained stable overnight and subsequent day. PHYSICAL EXAMINATION: VITAL SIGNS: Stable. Blood pressure 113/67, heart rate 75, respirations 16, temperature 97.8 degree s Fahrenheit. GENERAL: Reveals no groin hematomas. NECK: Neck veins are not distended. CHEST: Coarse without crackles. HEART: Sounds are regular to rate and rhythm. No murmur, gallop, or rub is appreciated. ABDOMEN: Benign. Bowel sounds positive. Telemetry strips revealed continued sinus rhythm with a midline right bundle-branch block, unchanged. PLAN: Discharge home on prior medications, which including apixaban 5 mg twice a day, finasteride, P roscar 5 mg a day, metoprolol succinate 100 mg every morning, pantoprazole 40 mg a day, tamsulosin. The patient was given omeprazole to continue as before. He is encouraged to take Carafate 1 gram 4 t imes a day for next 2 weeks. He is given Lasix and potassium as needed fluid overload. Routine followup in 6 weeks encouraged.
--- NOTE | 2018-01-29 08:32 | EKG ---
Test Reason : S/P ABLATION Blood Pressure : / mmHG Vent. Rate : 076 BPM Atrial Rate : 076 BPM P-R Int : 166 ms QRS Dur : 142 ms QT Int : 430 ms P-R-T Axes : 054 053 -04 degrees QTc Int : 483 ms Normal sinus rhythm Right bundle branch block Abnormal ECG When compared with ECG of 19-JAN-2018 11:32, (Unconfirmed) No significant change was found Confirmed by ZULLY HERNANDEZ ([id number] on 01/29/2018 8:31:57 AM Referred By: PRANAV Confirmed By:ZULLY HERNANDEZ
--- NOTE | 2018-01-29 08:43 | EKG ---
Test Reason : Blood Pressure : / mmHG Vent. Rate : 088 BPM Atrial Rate : 088 BPM P-R Int : 158 ms QRS Dur : 142 ms QT Int : 386 ms P-R-T Axes : 055 060 011 degrees QTc Int : 467 ms Sinus rhythm with frequent , and consecutive Premature ventricular complexes Right bundle branch block T wave abnormality, consider inferior ischemia Abnormal ECG When compared with ECG of 27-JAN-2018 11:08, (Unconfirmed) Premature ventricular complexes are now Present Confirmed by ZULLY HERNANDEZ ([id number]) on 01/29/2018 8:42:59 AM Referred By: PRANAV Confirmed By:ZULLY HERNANDEZ
== END 2018-01-28 15:10 | disposition home or self-care (01) ==
LOC: CCL 05:44 → 2SW 11:31
PROVIDERS: ADMIT Specialist; ATTEND Specialist
PROC: 4A023FZ Measurement of Cardiac Rhythm, Percutaneous Approach (ICD-10-PCS; principal; 2018-01-27)
PROC: 02583ZZ Destruction of Conduction Mechanism, Percutaneous Approach (ICD-10-PCS; 2018-01-27)
PROC: 02K83ZZ Map Conduction Mechanism, Percutaneous Approach (ICD-10-PCS; 2018-01-27)
DX: I48.1 Persistent atrial fibrillation (principal); I10 Essential (primary) hypertension; K21.9 Gastro-esophageal reflux disease without esophagitis; N40.0 Benign prostatic hyperplasia without lower urinary tract symptoms; Z79.01 Long term (current) use of anticoagulants; Z79.899 Other long term (current) drug therapy
CPT/HCPCS: 76942; 85347 ×2; 93005 ×2; 93613; 93623; 93656; 93662; C1731; C1759; C1769; G0378; 93010; J1644; J2001; J2405; J2704; J2720

== ENCOUNTER 2018-03-14 12:01 | Day surgery (SDC) | payer MEDICARE ==
[2018-03-11 15:24] VITALS: BMI 24.4
[2018-03-14 12:35] LABS: #Basophils 0.1 thou/uL (0.0-0.2); #Eosinphils 0.1 thou/uL (0.0-0.7); #Monocytes 0.6 thou/uL (0.11-0.59); #Neutrophils 3.6 thou/uL (1.40-6.50); %Eosinophils 2.1 % (0.0-10.0); %Lymphocytes 31.2 % (21.0-51.0); %Monocytes 9.4 % (0.0-10.0); %Neutrophils 56.4 % (42.0-75.0); Hemoglobin 15.1 g/dL (14.0-18.0); Mean Corpuscular HGB CONC 32.7 g/dL (32.0-36.0); Mean Corpuscular Hemoglobin 30.1 pg (27.0-31.0); Mean Corpuscular Volume 92.1 fL (78.0-98.0); Mean Platelet Volume 6.7 fL (7.4-10.4); Platelet Count 263 thou/uL (130-400); RBC Distribution Width 13.2 % (11.5-14.5); Red Blood Cell (RBC) Count 5.02 mill/uL (4.70-6.10); White Blood Cell (WBC) Count 6.4 thou/uL (4.8-10.8)
[2018-03-14 12:49] LABS: Anion Gap 12 mmol/L (10-20); BUN (Urea Nitrogen) 12 mg/dL (8.4-25.7); Calc. Creatinine Clearance 64 mL/min (70-130); Calcium 9.6 mg/dL (7.8-10.44); Carbon Dioxide 28 mmol/L (23-31); Chloride 104 mmol/L (98-107); Estimated GFR-MDRD 69; Glucose 115 mg/dL (83-110); Potassium 4.5 mmol/L (3.5-5.1); Sodium 139 mmol/L (136-145)
[2018-03-14 12:52] LABS: INR-International Normal Ratio 1.2; PTT 32.6 SEC (22.9-36.1); Prothrombin Time 15.7 SEC (12.0-14.7)
--- NOTE | 2018-03-16 17:56 | PRG ---
DATE OF SERVICE: 03/14/2018 SUBJECTIVE: Mr. Buck is here for cardioversion, post-op. He seems to have improved heart rate, less fatigue and tiredness in the last couple of days. He did start his flecainide as directed taking his metoprolol. He has not had dizziness or loss of consciousness. No bradycardiac symptoms. No fevers or chills. Comprehensive 12-point system otherwise unremarkable. OBJECTIVE: VITAL SIGNS: Blood pressure is 167/95, heart rate 70, respirations 12, and the patient is afebrile. GENERAL: This is an alert and oriented man, in no apparent distress. NECK: Supple. No jugular venous distention. CHEST: Clear. HEART: Regular. No murmur or gallop. ABDOMEN: Benign. Bowel sounds are positive. DIAGNOSTIC DATA: The EKG reveals sinus rhythm with rate of 59 beats per minute. QRS duration is 168 msec, QTc is 455. ASSESSMENT AND PLAN: Mr. Buck is a pleasant 82-year-old man with prior history of repeated left atrial ablation procedures. He had recurrent atrial flutter, initiated flecainide and chemically cardioverted. Now, he is back in sinus rhythm, hence we will cancel the electrical cardioversion procedure. He is likely to benefit from continued flecainide therapy. Hence the slightly lower heart rate at this point. We will cut back on the BB medication. He voiced understanding and will follow up with us in April as already scheduled. Continue anticoagulation as before. Job ID: [id number] MTDD
--- NOTE | 2018-03-16 21:45 | EKG ---
Test Reason : PREOP Blood Pressure : / mmHG Vent. Rate : 059 BPM Atrial Rate : 059 BPM P-R Int : 210 ms QRS Dur : 158 ms QT Int : 460 ms P-R-T Axes : 034 063 -05 degrees QTc Int : 455 ms Sinus bradycardia with 1st degree A-V block Possible Left atrial enlargement Right bundle branch block Abnormal ECG When compared with ECG of 28-JAN-2018 08:52, Premature ventricular complexes are no longer Present KS interval has increased Vent. rate has decreased BY 29 BPM Confirmed by Rusty BARRAZA ([id number]) on 03/16/2018 9:45:44 PM Referred By: [facility] Confirmed By:Rusty BARRAZA
== END 2018-03-14 13:02 | disposition home or self-care (01) ==
LOC: CCL 12:01
PROVIDERS: ATTEND Internal Medicine Cardiovascular Disease
DX: I48.4 Atypical atrial flutter (principal); I48.1 Persistent atrial fibrillation; I10 Essential (primary) hypertension; I45.10 Unspecified right bundle-branch block; Z53.8 Procedure and treatment not carried out for other reasons; N40.0 Benign prostatic hyperplasia without lower urinary tract symptoms; Z79.01 Long term (current) use of anticoagulants; Z79.899 Other long term (current) drug therapy
CPT/HCPCS: 36415; 80048; 85025; 85610; 85730; 93005; 93010

== ENCOUNTER 2021-03-05 09:16 | Inpatient (IN) | payer MEDICARE, OTHER ==
[2021-03-05 09:56] LABS: #Basophils 0.1 thou/uL (0.0-0.2); #Eosinphils 0.1 thou/uL (0.0-0.7); #Monocytes 0.7 thou/uL (0.11-0.59); #Neutrophils 5.4 thou/uL (1.40-6.50); %Basophils 0.7 % (0.0-1.0); %Eosinophils 0.9 % (0.0-10.0); %Lymphocytes 23.8 % (21.0-51.0); %Monocytes 8.3 % (0.0-10.0); %Neutrophils 66.2 % (42.0-75.0); Hemoglobin 16.9 g/dL (14.0-18.0); Mean Corpuscular HGB CONC 32.9 g/dL (32.0-36.0); Mean Corpuscular Hemoglobin 30.9 pg (27.0-31.0); Mean Platelet Volume 6.2 fL (7.4-10.4); Platelet Count 275 thou/uL (130-400); RBC Distribution Width 12.7 % (11.5-14.5); Red Blood Cell (RBC) Count 5.47 mill/uL (4.70-6.10); White Blood Cell (WBC) Count 8.2 thou/uL (4.8-10.8)
[2021-03-05 10:17] LABS: ALT (SGPT) 14 U/L (8-55); AST (SGOT) 15 U/L (5-34); Albumin 4.3 g/dL (3.4-4.8); Alkaline Phosphatase 41 U/L (40-110); Anion Gap 13 mmol/L (10-20); BUN (Urea Nitrogen) 10 mg/dL (8.4-25.7); Bilirubin, Total 0.8 mg/dL (0.2-1.2); Calc. Creatinine Clearance 0 mL/min (70-130); Calcium 9.2 mg/dL (7.8-10.44); Carbon Dioxide 24 mmol/L (23-31); Chloride 103 mmol/L (98-107); Globulin 2.5 g/dL (2.4-3.5); Glucose 129 mg/dL (83-110); Potassium 4.3 mmol/L (3.5-5.1); Protein, Total 6.8 g/dL (5.8-8.1); Sodium 136 mmol/L (136-145)
[2021-03-05 10:43] LABS: INR-International Normal Ratio 1.4
[2021-03-05] MEDS ORDERED: Diltiazem 125 MG/25 ML ONE ×2 (10:50→11:41)
[2021-03-05 10:54] LABS: Magnesium 1.7 mg/dL (1.6-2.6)
[2021-03-05] MEDS ORDERED: Diltiazem HCl 125 MG, Admixture Fee 1 EACH in Sodium Chloride 0.9% 100 ML IVPB SCH ×3 (11:45→14:18)
[2021-03-05 12:11] LABS: Bilirubin Negative (Negative); Blood, Urine Negative (Negative); Clarity Clear (Clear); Glucose, Urine (Dipstick) Normal (Negative); Ketone, Urine Negative (Negative); Leukocyte Negative Leu/uL (Negative); Nitrite Negative (Negative); Protein, Urine (Dipstick) Negative (Neg-Trace); Specific Gravity, Urine 1.004 (1.002-1.036); Urobilinogen Normal mg/dL (Less than 2)
[2021-03-05] MEDS ORDERED: Sodium Chloride 0.9% 1,000 ML IV SCH (12:30)
[2021-03-05] MEDS ORDERED: Digoxin 0.5 MG/2 ML AMP SLOW IVP SCH (13:30)
[2021-03-05 13:43] LABS: Lactic Acid 1.7 mmol/L (0.5-2.2)
[2021-03-05 13:52] LABS: Troponin I Less than 0.010 ng/mL (< 0.028)
[2021-03-05 13:53] VITALS: BMI 23.1
[2021-03-05] MEDS ORDERED: Metoclopramide HCl 10 MG/2 ML VIAL IVP PRN (14:09)
[2021-03-05 16:42] LABS: Troponin I 0.011 ng/mL (< 0.028)
[2021-03-05] MEDS: Acetaminophen 325 MG TAB PO PRN (17:42)
[2021-03-05] MEDS: Apixaban 5 MG TAB PO SCH (20:44)
[2021-03-05] MEDS: Flecainide 50 MG TAB PO SCH (20:44)
[2021-03-05] MEDS ORDERED: Flecainide 50 MG TAB PO SCH (21:00)
[2021-03-06 04:38] LABS: #Basophils 0.1 thou/uL (0.0-0.2); #Eosinphils 0.1 thou/uL (0.0-0.7); #Lymphocytes 2.2 thou/uL (1.20-3.40); #Monocytes 0.7 thou/uL (0.11-0.59); #Neutrophils 4.2 thou/uL (1.40-6.50); %Basophils 0.8 % (0.0-1.0); %Eosinophils 1.8 % (0.0-10.0); %Lymphocytes 30.4 % (21.0-51.0); %Monocytes 9.8 % (0.0-10.0); %Neutrophils 57.2 % (42.0-75.0); Mean Corpuscular HGB CONC 32.8 g/dL (32.0-36.0); Mean Corpuscular Hemoglobin 30.7 pg (27.0-31.0); Mean Corpuscular Volume 93.8 fL (78.0-98.0); Mean Platelet Volume 6.2 fL (7.4-10.4); Platelet Count 247 thou/uL (130-400); RBC Distribution Width 12.7 % (11.5-14.5); Red Blood Cell (RBC) Count 4.88 mill/uL (4.70-6.10); White Blood Cell (WBC) Count 7.3 thou/uL (4.8-10.8)
[2021-03-06 05:00] LABS: Anion Gap 9 mmol/L (10-20); BUN (Urea Nitrogen) 10 mg/dL (8.4-25.7); Calc. Creatinine Clearance 72 mL/min (70-130); Calcium 8.7 mg/dL (7.8-10.44); Carbon Dioxide 24 mmol/L (23-31); Chloride 106 mmol/L (98-107); Glucose 102 mg/dL (83-110); Potassium 3.7 mmol/L (3.5-5.1); Sodium 135 mmol/L (136-145)
[2021-03-06] MEDS: Flecainide 50 MG TAB PO SCH ×2 (08:47→21:16)
[2021-03-06] MEDS: Apixaban 5 MG TAB PO SCH ×2 (08:48→21:16)
[2021-03-06] MEDS: Tamsulosin HCl 0.4 MG CAP PO SCH (08:48)
[2021-03-06] MEDS: Finasteride 5 MG TAB PO SCH (08:48)
[2021-03-06] MEDS ORDERED: Sodium Chloride 0.9% 1,000 ML IV SCH (10:45)
[2021-03-06] MEDS: Acetaminophen 325 MG TAB PO PRN ×2 (11:24→21:16)
[2021-03-06] MEDS ORDERED: Digoxin 0.5 MG/2 ML AMP SLOW IVP SCH (15:00)
[2021-03-06] MEDS ORDERED: Diltiazem 125 MG in Sodium Chloride 0.9% 100 ML IVPB SCH (15:00)
[2021-03-06] MEDS ORDERED: Metoprolol Tartrate 25 MG TAB PO SCH (21:00)
[2021-03-06 21:09] LABS: SARS-CoV-2 PCR by NAA Not Detected (NotDetected)
[2021-03-07 08:15] LABS: Anion Gap 9 mmol/L (10-20); BUN (Urea Nitrogen) 10 mg/dL (8.4-25.7); Calc. Creatinine Clearance 69 mL/min (70-130); Carbon Dioxide 26 mmol/L (23-31); Chloride 105 mmol/L (98-107); Glucose 97 mg/dL (83-110); Potassium 4.3 mmol/L (3.5-5.1); Sodium 136 mmol/L (136-145)
[2021-03-07] MEDS: Flecainide 50 MG TAB PO SCH ×2 (10:51→21:18)
[2021-03-07] MEDS: Apixaban 5 MG TAB PO SCH ×2 (10:51→21:18)
[2021-03-07] MEDS: Tamsulosin HCl 0.4 MG CAP PO SCH (10:51)
[2021-03-07] MEDS: Finasteride 5 MG TAB PO SCH (10:52)
[2021-03-07] MEDS: Acetaminophen 325 MG TAB PO PRN (22:09)
[2021-03-08 05:39] LABS: Anion Gap 9 mmol/L (10-20); BUN (Urea Nitrogen) 12 mg/dL (8.4-25.7); Calc. Creatinine Clearance 59 mL/min (70-130); Calcium 8.8 mg/dL (7.8-10.44); Carbon Dioxide 28 mmol/L (23-31); Chloride 103 mmol/L (98-107); Glucose 86 mg/dL (83-110); Potassium 4.1 mmol/L (3.5-5.1); Sodium 136 mmol/L (136-145)
[2021-03-08] MEDS: Tamsulosin HCl 0.4 MG CAP PO SCH (08:52)
[2021-03-08] MEDS: Flecainide 50 MG TAB PO SCH (08:53)
[2021-03-08] MEDS: Apixaban 5 MG TAB PO SCH (08:53)
[2021-03-08] MEDS: Finasteride 5 MG TAB PO SCH (08:53)
[2021-03-08 16:11] VITALS: BP 128/69; TEMP 98.2
== END 2021-03-08 16:13 | disposition home or self-care (01) | DRG 310 ==
LOC: ERS 09:16 → 2NO 13:42
PROVIDERS: ADMIT Family Medicine; ATTEND Internal Medicine
DX: I48.0 Paroxysmal atrial fibrillation (principal); Z20.822 Contact with and (suspected) exposure to COVID-19; I48.92 Unspecified atrial flutter; I47.1 Supraventricular tachycardia; N40.0 Benign prostatic hyperplasia without lower urinary tract symptoms; K21.9 Gastro-esophageal reflux disease without esophagitis; I45.81 Long QT syndrome; E78.5 Hyperlipidemia, unspecified; I35.0 Nonrheumatic aortic (valve) stenosis; Z79.899 Other long term (current) drug therapy; Z79.01 Long term (current) use of anticoagulants; Z90.89 Acquired absence of other organs; Z82.49 Family history of ischemic heart disease and other diseases of the circulatory system
CPT/HCPCS: 36415; 71046; 80048; 80053; 81003; 83605; 83735; 84443; 84484; 85025; 85610; 85730; 87040; 87086; 93005; 93010; 96365; 96366; 96374; 96376; J1160; J3490; J7050; U0003; U0005

== ENCOUNTER 2021-09-10 10:40 | Outpatient (CLI) | payer MEDICARE, OTHER ==
[2021-09-10 12:16] LABS: Hemoglobin 15.2 g/dL (13.5-17.5); Mean Corpuscular Hemoglobin 30.1 pg (27.0-33.0); Mean Corpuscular Volume 91.3 fl (81.2-95.1); Mean Platelet Volume 8.6 fl (7.4-10.4); Platelet Count 223 10x3/uL (150-450); RBC Distribution Width 14.1 % (11.5-14.5); Red Blood Cell (RBC) Count 5.05 10x6/uL (4.32-5.72); White Blood Cell (WBC) Count 8.2 10x3/uL (3.5-10.5)
[2021-09-10 12:18] LABS: Bilirubin Neg (Negative); Blood, Urine Negative (Negative); Clarity Clear (Clear); Glucose, Urine (Dipstick) Normal (Negative); Ketone, Urine Negative (Negative); Leukocyte Negative (Negative); Nitrite Negative (Negative); Protein, Urine (Dipstick) 30 mg/dl (Neg-Trace); Specific Gravity, Urine 1.015 (1.002-1.036); Urobilinogen Normal mg/dL (Less than 2)
[2021-09-10 12:30] LABS: Prothrombin Time 10.6 sec (9.5-12.1)
[2021-09-10 12:32] LABS: ALT (SGPT) 16 U/L (8-55); AST (SGOT) 16 U/L (5-34); Albumin 4.5 g/dL (3.4-4.8); Alkaline Phosphatase 40 U/L (40-110); Anion Gap 15 mmol/L (10-20); BUN (Urea Nitrogen) 15 mg/dL (8.4-25.7); Bilirubin, Total 0.7 mg/dL (0.2-1.2); Calc. Creatinine Clearance 0 mL/min (70-130); Calcium 9.2 mg/dL (7.8-10.44); Carbon Dioxide 26 mmol/L (23-31); Chloride 96 mmol/L (98-107); Globulin 2.4 g/dL (2.4-3.5); Glucose 92 mg/dL (83-110); Potassium 4.3 mmol/L (3.5-5.1); Protein, Total 6.9 g/dL (5.8-8.1); Sodium 133 mmol/L (136-145)
[2021-09-10 20:35] LABS: SARS-CoV-2 PCR by NAA Not Detected (NotDetected)
== END 2021-09-10 10:41 | disposition home or self-care (01) ==
LOC: LABBT 10:40
PROVIDERS: ATTEND Specialist
DX: Z01.818 Encounter for other preprocedural examination (principal); I48.91 Unspecified atrial fibrillation; Z20.822 Contact with and (suspected) exposure to COVID-19
CPT/HCPCS: 80053; 81003; 85027; 85610; 85730; 93005; U0003; U0005; 93010

== ENCOUNTER 2021-09-15 09:58 | Observation (INO) | payer MEDICARE, OTHER ==
[2021-09-11 10:38] VITALS: BMI 21.2
[2021-09-15] MEDS ORDERED: Protamine Sulfate 50 MG/5 ML VIAL ONE (11:54)
[2021-09-15] MEDS ORDERED: Heparin 10,000 UNITS/ 10 ML VIAL ONE (11:54)
[2021-09-15] MEDS ORDERED: Heparin 25,000 units/D5W 500 ML ONE (11:54)
[2021-09-15] MEDS ORDERED: Isoproterenol 0.2 MG/1 ML AMP ONE (11:55)
[2021-09-15] MEDS ORDERED: PHENYLEPHRINE-NS 100 MCG/ML 10 ML SYRINGE ONE (12:22)
[2021-09-15] MEDS ORDERED: PROPOFOL 200 MG/20 ML VIAL ONE (12:22)
[2021-09-15] MEDS ORDERED: Rocuronium Bromide 10 MG/ML (10ML VIAL) ONE (12:22)
[2021-09-15] MEDS ORDERED: Glycopyrrolate 0.2 MG/ML 5 ML SYRINGE ONE (12:22)
[2021-09-15] MEDS ORDERED: Lidocaine 1% PF 5 ML VIAL ONE (12:22)
[2021-09-15] MEDS ORDERED: SUGAMMADEX SODIUM 200 MG/2 ML VIAL ONE (13:57)
[2021-09-15] MEDS ORDERED: Acetaminophen 325 MG TAB PO PRN (14:14)
[2021-09-15] MEDS ORDERED: Cepastat Lozenges 1 LOZ PO PRN (17:06)
[2021-09-15] MEDS ORDERED: Tamsulosin HCl 0.4 MG CAP PO SCH (21:00)
[2021-09-15] MEDS: Apixaban 5 MG TAB PO SCH (21:29)
[2021-09-15] MEDS: Flecainide 50 MG TAB PO SCH (21:29)
[2021-09-16 05:27] LABS: #Lymphocytes 1.7 thou/uL (1.20-3.40); #Neutrophils 7.5 thou/uL (1.40-6.50); %Basophils 0.2 % (0.0-1.0); %Eosinophils 0.4 % (0.0-10.0); %Lymphocytes 16.3 % (21.0-51.0); %Monocytes 9.6 % (0.0-10.0); %Neutrophils 73.6 % (42.0-75.0); Mean Corpuscular HGB CONC 33.4 g/dL (32.0-36.0); Mean Corpuscular Hemoglobin 31.8 pg (27.0-31.0); Mean Corpuscular Volume 95.1 fL (78.0-98.0); Mean Platelet Volume 5.9 fL (7.4-10.4); Platelet Count 189 thou/uL (130-400); RBC Distribution Width 13.6 % (11.5-14.5); Red Blood Cell (RBC) Count 4.39 mill/uL (4.70-6.10); White Blood Cell (WBC) Count 10.2 thou/uL (4.8-10.8)
[2021-09-16 05:51] LABS: Anion Gap 9 mmol/L (10-20); BUN (Urea Nitrogen) 11 mg/dL (8.4-25.7); Calc. Creatinine Clearance 71 mL/min (70-130); Calcium 8.2 mg/dL (7.8-10.44); Carbon Dioxide 23 mmol/L (23-31); Chloride 101 mmol/L (98-107); Glucose 79 mg/dL (83-110); Potassium 4.1 mmol/L (3.5-5.1); Sodium 129 mmol/L (136-145)
[2021-09-16] MEDS: Flecainide 50 MG TAB PO SCH (08:39)
[2021-09-16] MEDS: Apixaban 5 MG TAB PO SCH (08:39)
[2021-09-16] MEDS ORDERED: Finasteride 5 MG TAB PO SCH (09:00)
[2021-09-16 11:34] VITALS: BP 111/68; TEMP 98.2
== END 2021-09-16 12:03 | disposition home or self-care (01) ==
LOC: SDC 09:58 → 2SW 14:14
PROVIDERS: ADMIT Specialist; ATTEND Specialist
PROC: B244ZZ3 Ultrasonography of Right Heart, Intravascular (ICD-10-PCS; principal; 2021-09-15)
PROC: 02583ZZ Destruction of Conduction Mechanism, Percutaneous Approach (ICD-10-PCS; 2021-09-15)
PROC: 02K83ZZ Map Conduction Mechanism, Percutaneous Approach (ICD-10-PCS; 2021-09-15)
DX: I48.19 Other persistent atrial fibrillation (principal); I48.3 Typical atrial flutter; I48.4 Atypical atrial flutter; I45.10 Unspecified right bundle-branch block; I73.9 Peripheral vascular disease, unspecified; N40.0 Benign prostatic hyperplasia without lower urinary tract symptoms; I10 Essential (primary) hypertension; K21.9 Gastro-esophageal reflux disease without esophagitis; E78.5 Hyperlipidemia, unspecified; I47.1 Supraventricular tachycardia; Z87.891 Personal history of nicotine dependence; Z79.01 Long term (current) use of anticoagulants; Z79.899 Other long term (current) drug therapy
CPT/HCPCS: 80048; 85025; 85347 ×2; 93005; 93613; 93623; 93655; 93656; 93657; 93662; C1732; C1759; C1760; C1884; 36415; G0378; J1644; J2704; J2720

== ENCOUNTER 2021-12-29 15:17 | Emergency (ER) | payer MEDICARE, OTHER | END 2021-12-29 18:24 | disposition home or self-care (01) | LOC: ERS 15:17 | DX: S09.90XA Unspecified injury of head, initial encounter (principal); I10 Essential (primary) hypertension; I48.91 Unspecified atrial fibrillation; Z79.01 Long term (current) use of anticoagulants; Z79.899 Other long term (current) drug therapy; W18.09XA Striking against other object with subsequent fall, initial encounter | CPT/HCPCS: 70450 ==

== ENCOUNTER 2022-01-07 09:21 | Outpatient (CLI) | payer MEDICARE, OTHER | END 2022-01-07 09:22 | disposition home or self-care (01) | LOC: BICCT 09:21 | PROVIDERS: ATTEND Internal Medicine Cardiovascular Disease | DX: R55 Syncope and collapse (principal); J43.9 Emphysema, unspecified | CPT/HCPCS: 70498 ==

== ENCOUNTER 2022-06-25 08:29 | Outpatient (CLI) | payer MEDICARE, OTHER | END 2022-06-25 08:30 | disposition home or self-care (01) | LOC: BICCT 08:29 | PROVIDERS: ATTEND Physician Assistant Medical | DX: K52.9 Noninfective gastroenteritis and colitis, unspecified (principal); R63.4 Abnormal weight loss | CPT/HCPCS: 71260; 74177; 82565 ==

== ENCOUNTER 2022-11-13 07:32 | Outpatient (CLI) | payer MEDICARE, OTHER ==
[2022-11-13] MEDS ORDERED: Iopamidol-370 76% 500 ML MDV (1 ML CHARGE) ONE (10:05)
== END 2022-11-13 07:33 | disposition home or self-care (01) ==
LOC: BICCT 07:32
PROVIDERS: ATTEND Physician Assistant
DX: I65.23 Occlusion and stenosis of bilateral carotid arteries (principal); I70.0 Atherosclerosis of aorta; I67.2 Cerebral atherosclerosis; I65.1 Occlusion and stenosis of basilar artery
CPT/HCPCS: 70498; 82565; Q9967

== ENCOUNTER 2022-12-19 16:39 | Emergency (ER) | payer MEDICARE, OTHER ==
[2022-12-19 17:42] LABS: #Basophils 0.1 thou/uL (0.0-0.2); #Eosinphils 0.1 thou/uL (0.0-0.7); #Monocytes 1.1 thou/uL (0.11-0.59); #Neutrophils 7.1 thou/uL (1.40-6.50); %Basophils 0.7 % (0.0-1.0); %Eosinophils 0.5 % (0.0-10.0); %Lymphocytes 16.4 % (21.0-51.0); %Monocytes 10.9 % (0.0-10.0); %Neutrophils 71.2 % (42.0-75.0); Hematocrit 43.2 % (42.0-52.0); Hemoglobin 14.3 g/dL (14.0-18.0); Mean Corpuscular HGB CONC 33.1 g/dL (32.0-36.0); Mean Corpuscular Hemoglobin 30.7 pg (27.0-31.0); Mean Corpuscular Volume 92.7 fl (78.0-98.0); Mean Platelet Volume 9.1 fL (7.4-10.4); Platelet Count 228 10x3/uL (130-400); RBC Distribution Width 13.6 % (11.5-14.5); Red Blood Cell (RBC) Count 4.66 mill/uL (4.70-6.10)
[2022-12-19 18:11] LABS: ALT (SGPT) 11 U/L (8-55); AST (SGOT) 17 U/L (5-34); Albumin 4.5 g/dL (3.4-4.8); Alkaline Phosphatase 96 U/L (40-110); Anion Gap 12 mmol/L (10-20); BUN (Urea Nitrogen) 15 mg/dL (8.4-25.7); Bilirubin, Total 0.5 mg/dL (0.2-1.2); Calc. Creatinine Clearance 0 mL/min (70-130); Calcium 9.4 mg/dL (7.8-10.44); Carbon Dioxide 26 mmol/L (23-31); Chloride 99 mmol/L (98-107); Estimated GFR 77; Globulin 2.4 g/dL (2.4-3.5); Glucose 93 mg/dL (83-110); Potassium 4.6 mmol/L (3.5-5.1); Protein, Total 6.9 g/dL (5.8-8.1); Sodium 132 mmol/L (136-145)
== END 2022-12-19 18:28 | disposition short-term general hospital (02) ==
LOC: ERS 16:39
DX: M17.12 Unilateral primary osteoarthritis, left knee (principal); L03.116 Cellulitis of left lower limb; I10 Essential (primary) hypertension; I48.91 Unspecified atrial fibrillation; Z79.01 Long term (current) use of anticoagulants
CPT/HCPCS: 36415; 80053; 84550; 85025; 86140

== ENCOUNTER 2023-01-21 09:52 | Outpatient (CLI) | payer MEDICARE, OTHER | END 2023-01-21 09:53 | disposition home or self-care (01) | LOC: BICRAD 09:52 | PROVIDERS: ATTEND Physician Assistant Medical | DX: R63.4 Abnormal weight loss (principal); K52.9 Noninfective gastroenteritis and colitis, unspecified; R10.10 Upper abdominal pain, unspecified; R91.8 Other nonspecific abnormal finding of lung field | CPT/HCPCS: 71046 ==

== ENCOUNTER 2023-11-03 09:40 | Outpatient (CLI) | payer MEDICARE, OTHER ==
[2023-11-03] MEDS ORDERED: Iopamidol 370 76% 100 ML VIAL ONE (10:53)
== END 2023-11-03 09:41 | disposition home or self-care (01) ==
LOC: BICCT 09:40
PROVIDERS: ATTEND Internal Medicine Cardiovascular Disease
DX: I65.23 Occlusion and stenosis of bilateral carotid arteries (principal)
CPT/HCPCS: 70498; 82565; Q9967